=== PATIENT | female | born 1990 | race Caucasian/White ===

== ENCOUNTER → 2021-03-14 | Outpatient (CLI) | payer BC, OTHER ==
[~2021-03-14] MED LIST: DOCUSATE SODIU100 MG PO; HYDROCODON-ACE1 EAC4 PO; IBUPROFEN600 MG PO; MAGNESIUM400 MG PO; OMEGA 3 1,0001 EACH PO; PRENATABS FA T1 EACH PO; TURMERIC-TAMAR250 MG PO; ZOLOFT50 MG PO
[2021-03-14 13:51] LABS: HEMOGLOBIN 12.8 gm/dl (12.3-15.3); RED BLOOD COUNT 4.05 M/UL (4.00-5.10); WHITE BLOOD COUNT 13.4 K/UL (4.5-11.0)
== END ==
LOC: GENOP 13:00
PROVIDERS: Obstetrics & Gynecology
DX: Z01.812 Encounter for preprocedural laboratory examination (principal); Z20.822 Contact with and (suspected) exposure to COVID-19; O32.1XX0 Maternal care for breech presentation, not applicable or unspecified; Z3A.00 Weeks of gestation of pregnancy not specified
CPT/HCPCS: 36415; 81001; 85025; U0002

== ENCOUNTER 2021-03-15 05:32 | Inpatient (IN) | payer BC, OTHER ==
[~2021-03-15] VITALS: Ht 160 cm; Wt 115.7 kg
[2021-03-15] MEDS ORDERED: PRENATABS FA T1 EACH PO (06:10)
[2021-03-15] MEDS ORDERED: ZOLOFT50 MG PO (06:10)
[2021-03-15] MEDS ORDERED: OMEGA 3 1,0001 EACH PO (06:12)
[2021-03-15] MEDS ORDERED: TURMERIC-TAMAR250 MG PO (06:13)
[2021-03-15] MEDS ORDERED: MAGNESIUM400 MG PO (06:14)
[2021-03-15] MEDS ORDERED: DOCUSATE SODIU100 MG PO (07:51)
[2021-03-15] MEDS ORDERED: HYDROCODON-ACE1 EAC4 PO (07:51)
[2021-03-15] MEDS ORDERED: IBUPROFEN600 MG PO (07:51)
[2021-03-16 07:09] LABS: HEMOGLOBIN 10.7 gm/dl (12.3-15.3)
== END 2021-03-17 13:50 | disposition home or self-care (01) | DRG 788 ==
LOC: OB 05:32
PROVIDERS: ADMIT Obstetrics & Gynecology
PROC: 4A1HXCZ Monitoring of Products of Conception, Cardiac Rate, External Approach (ICD-10-PCS; 2021-03-15)
PROC: 10D00Z1 Extraction of Products of Conception, Low, Open Approach (ICD-10-PCS; principal; 2021-03-15 07:52)
DX: O32.1XX0 Maternal care for breech presentation, not applicable or unspecified (principal); O36.63X0 Maternal care for excessive fetal growth, third trimester, not applicable or unspecified; Z3A.39 39 weeks gestation of pregnancy; Z37.0 Single live birth; O99.344 Other mental disorders complicating childbirth; F41.9 Anxiety disorder, unspecified; O62.2 Other uterine inertia; Z20.822 Contact with and (suspected) exposure to COVID-19
CPT/HCPCS: 36415; 36600; 81001; 82800; 85014; 85018; 85025; 86900; 86901; 90471; 90715; C9113; J0690; J1170; J1200; J1650; J2210; J2274; J2405; J2590; J3010; J7120; U0002